=== PATIENT | male | born 1960 | race Caucasian/White ===

== ENCOUNTER 2019-04-14 21:08 | Emergency (ER) | payer MEDICAID ==
[~2019-04-14] VITALS: Ht 167.6 cm; Wt 86.6 kg
[2019-04-14 21:13] VITALS: Ht 167.6 cm; Wt 86.6 kg
[2019-04-14 21:57] VITALS: BP 130/66
== END 2019-04-14 21:57 | disposition home or self-care (01) ==
LOC: ED 21:08
DX: K64.5 Perianal venous thrombosis (principal)

== ENCOUNTER 2020-08-12 17:46 | Emergency (ER) | payer OTHER ==
[~2020-08-12] VITALS: Ht 172.7 cm; Wt 90.7 kg
[2020-08-12 18:02] VITALS: Ht 172.7 cm; Wt 90.7 kg
[2020-08-12 18:44] VITALS: BP 127/72
== END 2020-08-12 18:29 | disposition home or self-care (01) ==
LOC: ED 17:46
DX: N49.2 Inflammatory disorders of scrotum (principal); E11.9 Type 2 diabetes mellitus without complications
CPT/HCPCS: 82962